=== PATIENT | female | born 1965 | race Asian ===

== ENCOUNTER 2018-08-08 09:44 | Day surgery (SDC) | payer OTHER ==
[2018-08-08] MEDS ORDERED: MIDAZOLAM 1 MG/ML 2 ML INJ ×3 (12:27→12:28)
[2018-08-08] MEDS ORDERED: FENTAnyl 50 MCG/ML VIAL (12:27)
== END 2018-08-08 16:27 | disposition home or self-care (01) ==
LOC: GIL 09:44
DX: Z12.11 Encounter for screening for malignant neoplasm of colon (principal); K29.50 Unspecified chronic gastritis without bleeding; K64.4 Residual hemorrhoidal skin tags; K64.8 Other hemorrhoids; K57.30 Diverticulosis of large intestine without perforation or abscess without bleeding; K21.9 Gastro-esophageal reflux disease without esophagitis; K31.7 Polyp of stomach and duodenum; I10 Essential (primary) hypertension
CPT/HCPCS: 43239; 88305; 88312

== ENCOUNTER 2019-02-21 14:44 | Emergency (ER) | payer OTHER | END 2019-02-21 16:28 | disposition home or self-care (01) | LOC: FTE 14:44 | DX: S93.401A Sprain of unspecified ligament of right ankle, initial encounter (principal); I10 Essential (primary) hypertension; X50.1XXA Overexertion from prolonged static or awkward postures, initial encounter; Y92.9 Unspecified place or not applicable; Z79.82 Long term (current) use of aspirin | CPT/HCPCS: 29515; 73610-RT; 73630; 99283-25 ==